=== PATIENT | male | born 1955 ===

== ENCOUNTER 2023-02-26 04:31 | Day surgery (SDC) | payer OTHER ==
[2023-02-22 13:35] VITALS: BMI 29.2
[2023-02-26] MEDS ORDERED: MIDAZOLAM HCL 2 MG/2 ML SINGLE DOSE VIAL ONE (11:56)
[2023-02-26] MEDS ORDERED: FENTANYL CITRATE/PF 50 MCG/ML VIAL ONE ×3 (11:56→12:38)
[2023-02-26] MEDS ORDERED: ceFAZolin SODIUM 1 GM VIAL IVPB ONE (12:27)
[2023-02-26] MEDS ORDERED: LACTATED RINGERS SOLUTION 1,000 ML IV SCH (13:15)
[2023-02-26 16:02] VITALS: RESP 16
[2023-02-26 16:29] VITALS: BP 137/75; PULSE 75; TEMP 97.3
== END 2023-02-26 17:05 | disposition home or self-care (01) ==
LOC: JASUSAT 04:31 → JASU-SURG 04:31 → JASUSAT 17:05
PROVIDERS: ATTEND Urology
PROC: 0VT08ZZ Resection of Prostate, Via Natural or Artificial Opening Endoscopic (ICD-10-PCS; principal; 2023-02-26 11:00)
DX: N40.0 Benign prostatic hyperplasia without lower urinary tract symptoms (principal)
CPT/HCPCS: 82962; 88305-TC; 94760